=== PATIENT | male | born 2000 | race Caucasian/White ===

== ENCOUNTER 2019-11-29 10:11 | Outpatient (REF) | payer MEDICAID, SELFPAY ==
[2019-11-29 12:41] LABS: Baso%MD 0.6 %; Eos%MD 1.9 %; Hematocrit 46.8 % (42-52); Hemoglobin 14.6 g/dl (14.0-18.0); IG%MD 0.6 %; Lymph%MD 19.6 %; Mean Corpuscular HGB Conc 31.2 g/dl (31.0-36.0); Mean Corpuscular Hemoglobin 28.2 pg (27.0-33.0); Mean Corpuscular Volume 90.5 fL (80-98); Mean Platelet Volume 11.5 fL (9.4-12.4); Mono%MD 4.9 %; Neut%MD 72.4 %; Platelet Count 216 X10*3/uL (160-400); Red Blood Count 5.17 X10*6/uL (4.60-5.80); Red Cell Distribution Width 12.7 % (11.0-16.0); White Blood Count 12.2 X10*3/uL (4.8-10.8)
[2019-11-29 13:04] LABS: Alanine Aminotransferase 6 U/L (0-40); Albumin Level 4.2 g/dL (3.5-5.0); Alkaline Phosphatase 93 U/L (39-117); Anion Gap 12 (12-20); Aspartate Amino Transferase 12 U/L (5-37); Bilirubin Total 0.3 mg/dL (0.0-1.0); Blood Urea Nitrogen 10 mg/dL (9-16); C Reactive Protein 0.22 mg/dL (< or = 0.50); Calcium 8.7 mg/dL (8.4-10.2); Carbon Dioxide 28 mmol/L (22-29); Chloride 103 mmol/L (96-108); Estimated Glomerular Filt Rate > 60; Glucose Random 95 mg/dL (60-115); Potassium 4.2 mmol/l (3.3-5.1); Sodium 139 mmol/L (135-145); Total Protein 6.8 g/dL (6.5-8.0)
[2019-11-29 13:06] LABS: Rheumatoid Factor < 15.0 IU/mL (<15.0)
[2019-11-29 14:09] LABS: Erythrocyte Sedimentation Rate 2 MM/HR (0-15)
[2019-11-29 15:14] LABS: Basophils Abs Manual 0.1 X10*3/uL (0.0-0.3); Basophils Percent Manual 1 % (0-1); Eosinophils Absolute Manual 0.5 X10*3/UL (0.0-0.8); Eosinophils Percent Manual 4 % (0-4); Lymphocytes Absolute Manual 1.8 X10*3/uL (0.6-4.8); Lymphocytes Percent Manual 15 % (20-40); Monocytes Absolute Manual 0.6 X10*3/uL (0.0-1.2); Monocytes Percent Manual 5 % (2-11); Neutrophils Percent Manual 75 % (45-73)
[2019-11-29 15:15] LABS: Band Neutrophils Percent 0 % (3-5); Neutrophils Absolute Manual 9.2 X10*3/uL (2.2-7.9); Platelet Estimate NORMAL (NORMAL); Platelet Morphology Comment NORMAL; RBC Morphology NORMAL
[2019-12-01 22:02] LABS: Cyclic Citrullinated Peptide <16 UNITS
[2019-12-02 12:17] LABS: SM/Ribonucleoprotein Ab <1.0 NEG AI (<1.0 NEG); Smith Protein <1.0 NEG AI (<1.0 NEG)
[2019-12-02 14:11] LABS: Hexagonal Phase Neutralization POSITIVE (NEGATIVE); PTT (LAC) Screen 43 sec (< OR = 40); Thrombin Clotting Time 17 sec (13-19)
[2019-12-02 14:56] LABS: Complement C3 75 mg/dL (82-185)
[2019-12-03 13:16] LABS: Anti DNA DS Antibody 8 IU/mL; Antibody to SS-A Antigen <1.0 NEG AI (<1.0 NEG); Antibody to SS-B Antigen <1.0 NEG AI (<1.0 NEG)
== END 2019-11-29 10:12 | disposition home or self-care (01) ==
LOC: HO.LAB 10:11
PROVIDERS: Visit Provider Pediatrics Pediatric Rheumatology
DX: M32.19 Other organ or system involvement in systemic lupus erythematosus (principal)
CPT/HCPCS: 36415; 80053; 85007; 85027; 85597; 85613; 85652; 85730; 86038; 86039; 86140; 86160; 86200; 86225; 86235; 86431

== ENCOUNTER 2019-12-13 10:01 | Outpatient (REF) | payer MEDICAID, SELFPAY ==
--- NOTE | 2019-12-13 10:10 | XR_ITS ---
EXAMINATION: XR HAND, RIGHT CLINICAL INFORMATION: Lupus COMPARISON: Previous right wrist x-ray March 2017 TECHNIQUE: PA, lateral, and oblique views of the right hand. FINDINGS: The bones are osteopenic. There is joint space narrowing and ulnar deviation at the second through fifth MCP joints. There is joint space narrowing and slight flexion at the DIP joint of the third and fifth fingers and question of second finger. There may be slight extension at the PIP joint of the third and fifth fingers. No erosive changes are seen. The carpal bones are unremarkable. The soft tissues are unremarkable. XR/XR hand RT 2V IMPRESSION: Periarticular osteopenia. Arthritis at the IP and MCP joints.
== END 2019-12-13 10:02 | disposition home or self-care (01) ==
LOC: HO.XRAY 10:01
PROVIDERS: PCP Pediatrics; Visit Provider Pediatrics Pediatric Rheumatology
DX: M32.19 Other organ or system involvement in systemic lupus erythematosus (principal)
CPT/HCPCS: 73120

== ENCOUNTER 2020-12-07 15:33 | Outpatient (REF) | payer MEDICAID, SELFPAY ==
--- NOTE | ~2020-12-07 | MR_ITS ---
EXAMINATION: MR HAND WITHOUT AND WITH CONTRAST, RIGHT CLINICAL INFORMATION: Rheumatoid arthritis. COMPARISON: Right hand radiographs dated 12/13/2019. TECHNIQUE: Multisequence MR imaging of the right hand was performed before and after the administration of 5.5 mL Gadavist IV contrast on a high-field strength scanner. FINDINGS: BONE: There is joint space narrowing with associated flexion at the 5th distal interphalangeal joint, similar when compared to the prior radiographs. There is associated joint space narrowing with mild marrow edema and postcontrast enhancement. No large osseous erosion, however, fine bony detail is limited on MR examination. No additional abnormal marrow signal. No acute fracture or subluxation. MUSCLES/TENDONS: Fluid within the 5th flexor tendon sheath as well as to a lesser degree within the 2nd flexor tendon sheath, consistent with mild tenosynovitis. No measurable tendon defect. LIGAMENTS: The collateral ligaments are grossly intact. SOFT TISSUES: No abnormal soft tissue mass, fluid collection, or enhancement. No significant joint effusion. MR/MR hand RT wo/w con IMPRESSION: 1. Joint space narrowing and flexion redemonstrated at the 5th distal interphalangeal joint, similar when compared to the prior radiographs. Mild periarticular edema and postcontrast enhancement without definite osseous erosion. Fine bony detail somewhat limited on MR examination. 2. Moderate 5th and more mild 2nd flexor tenosynovitis. No measurable tendon defect.
--- NOTE | ~2020-12-07 | MR_ITS ---
EXAMINATION: MR HAND WITHOUT AND WITH CONTRAST, LEFT CLINICAL INFORMATION: Rheumatoid arthritis. COMPARISON: None TECHNIQUE: Multisequence MR imaging of the left hand was obtained before and after the administration of 5.5 mL Gadavist IV contrast on a high-field strength scanner. FINDINGS: BONE: There is joint space narrowing with associated flexion at the 5th distal interphalangeal joint. No significant associated marrow edema. No large osseous erosion. Evaluation of fine bony detail is limited on MRI examination. No abnormal marrow signal. No fracture or dislocation. No lytic or blastic osseous lesion. MUSCLES/TENDONS: The visualized flexor and extensor tendons are grossly intact. LIGAMENTS: The collateral ligaments are grossly intact. SOFT TISSUES: Small 1st carpometacarpal joint effusion with mild adjacent soft tissue edema and postcontrast enhancement. MR/MR hand LT wo/w con IMPRESSION: 1. Joint space narrowing and flexion at the 5th distal interphalangeal joint without a large osseous erosion or significant marrow edema. Evaluation of fine bony detail limited on MR examination. 2. Small 1st carpometacarpal joint effusion with mild adjacent soft tissue edema and postcontrast enhancement. Findings could represent inflammatory arthropathy. No associated osseous erosion.
== END 2020-12-07 15:34 | disposition home or self-care (01) ==
LOC: HO.MRI 15:33
PROVIDERS: Visit Provider Pediatrics Pediatric Rheumatology
DX: M06.9 Rheumatoid arthritis, unspecified (principal)
CPT/HCPCS: 73220; A9585

== ENCOUNTER 2021-12-14 10:26 | Outpatient (REF) | payer MEDICAID, SELFPAY ==
[2021-12-14 10:48] LABS: MANUAL DIFF FLAG NO
[2021-12-14 11:12] LABS: Basophils Absolute Auto 0.1 X10*3/uL (0.0-0.2); Basophils Percent Auto 0.7 % (0-2); Eosinophils Absolute Auto 0.2 X10*3/uL (0.0-0.4); Eosinophils Percent Auto 2.4 % (0-4); Hematocrit 43.4 % (42.0-52.0); Hemoglobin 14.6 g/dl (14.0-18.0); Imm Gran Abs Auto 0.04 X10*3/uL (0.00-0.03); Imm Gran Pct Auto 0.4 % (0.0-0.4); Lymphocytes Percent Auto 31.3 % (20-40); Mean Corpuscular HGB Conc 33.6 g/dl (31.0-36.0); Mean Corpuscular Hemoglobin 30.4 pg (27.0-33.0); Mean Corpuscular Volume 90.2 fL (80.0-98.0); Mean Platelet Volume 11.1 fL (9.4-12.4); Monocytes Absolute Auto 0.9 X10*3/uL (0.1-1.2); Neutrophils Absolute Auto 5.5 x10*3/uL (2.0-8.3); Neutrophils Percent Auto 56.2 % (45-73); Platelet Count 208 X10*3/uL (160-400); Red Blood Count 4.81 X10*6/uL (4.60-5.80); White Blood Count 9.7 X10*3/uL (4.8-10.8)
[2021-12-14 11:49] LABS: Alanine Aminotransferase 10 U/L (0-40); Aspartate Amino Transferase 16 U/L (5-37); Blood Urea Nitrogen 15 mg/dL (9-16); Cholesterol 106 mg/dL; Estimated Glomerular Filt Rate > 60; HDL Cholesterol 46 mg/dL; LDL Cholesterol Calculated 45 mg/dl; Triglycerides 79 mg/dL
[2021-12-14 11:54] LABS: Vitamin D 25-OH Total 29.3 ng/mL (>30)
[2021-12-14 12:06] LABS: Erythrocyte Sedimentation Rate 2 MM/HR (0-15)
[2021-12-14 12:17] LABS: Appearance Urine Clear; Color Urine Yellow; Glucose Urine UA Negative (Negative); Leukocyte Esterase Urine Negative (Negative); Nitrite Urine Negative (Negative); PH 6.5 (5.0-9.0); UMIC TRIGGER UA YES; Urine Blood Trace (Negative); Urine Ketones Negative (Negative); Urine Protein Trace mg/dL (Neg-Trace)
[2021-12-14 12:28] LABS: Bacteria Urine None Seen (None Seen); Hyaline Casts Urine 0-2 /LPF (0-2); Squamous Epithelial Cell Urine 0-2 /HPF (0-2); WBC Urine 0-5 /HPF (0-5)
[2021-12-15 18:57] LABS: Complement C3 76 mg/dL (82-185)
[2021-12-17 13:56] LABS: Anti DNA DS Antibody 8 IU/mL
== END 2021-12-14 10:27 | disposition home or self-care (01) ==
LOC: HO.LAB 10:26
PROVIDERS: Visit Provider Pediatrics Pediatric Rheumatology
DX: M32.19 Other organ or system involvement in systemic lupus erythematosus (principal); M06.9 Rheumatoid arthritis, unspecified
CPT/HCPCS: 36415; 80061; 81001; 82306; 82565; 84450; 84460; 84520; 85025; 85652; 86160; 86225

== ENCOUNTER 2023-07-17 06:00 | Emergency (ER) | payer MEDICAID, SELFPAY ==
[2023-07-17 06:06] VITALS: BP 104/69; PULSE 89; RESP 18; TEMP 37.1; O2SAT 97; BMI 22.3
[2023-07-17 06:31] LABS: Basophils Absolute Auto 0.1 X10*3/uL (0.0-0.2); Basophils Percent Auto 0.5 % (0-2); Eosinophils Percent Auto 0.1 % (0-4); Hematocrit 45.4 % (42.0-52.0); Hemoglobin 15.9 g/dl (14.0-18.0); Imm Gran Pct Auto 0.6 % (0.0-0.4); Lymphocytes Absolute Auto 0.3 X10*3/uL (1.2-4.9); Lymphocytes Percent Auto 1.7 % (20-40); MANUAL DIFF FLAG NO; Mean Corpuscular Hemoglobin 31.1 pg (27.0-33.0); Mean Corpuscular Volume 88.8 fL (80.0-98.0); Mean Platelet Volume 10.5 fL (9.4-12.4); Monocytes Absolute Auto 1.3 X10*3/uL (0.1-1.2); Monocytes Percent Auto 7.6 % (2-11); Neutrophils Absolute Auto 15.7 x10*3/uL (2.0-8.3); Neutrophils Percent Auto 89.5 % (45-73); Platelet Count 176 X10*3/uL (160-400); Red Blood Count 5.11 X10*6/uL (4.60-5.80); Red Cell Distribution Width 11.6 % (11.0-16.0); White Blood Count 17.5 X10*3/uL (4.8-10.8)
[2023-07-17 06:33] LABS: Appearance Urine Clear; Color Urine Yellow; Glucose Urine UA Negative (Negative); Leukocyte Esterase Urine Negative (Negative); Nitrite Urine Negative (Negative); PH >= 9.0 (5.0-9.0); UMIC TRIGGER UACC YES; Urine Blood Negative (Negative); Urine Ketones 40 mg/dL (Negative); Urine Protein 30 (1+) mg/dL (Neg-Trace)
--- OUTSIDE RECORDS SUMMARY | 2023-07-17 06:44 | XMS_ITS | Continuity of Care Document ---
Author Organization [facility] Address [address] [place] [address]- Care Team Providers Care Sterile Products Processor Name Role Phone Emily BLANC, Bang Bravo Primary Care Physician [phone] [place] [facility] [place] Date(s): 11/26/18 - 02/20/19 [facility] [address] [place] [address]- [facility] Attending Physician: Reinaldo Castro MD Allergies, Adverse Reactions, Alerts Substance Reaction Severity Status NKA Active Medications folic acid 1 mg oral tablet 1 mg, 1, tablet, By Mouth, Daily, Take 6 days per week (do not take on methotrexate day), # 90 tablet, Refills 3, Tot. Refills 3, Maintenance, 10/23/17 10:26:33 EDT, Route to Pharmacy Electronically, [id number], [facility] Start Date: 10/23/17 Status: Ordered hydroxychloroquine 200 mg oral tablet 300 mg, 1.5, tablet, By Mouth, Daily, # 45 tablet, Refills 5, Tot. Refills 5, Maintenance, 08/31/1913:26:59 EDT, Route to Pharmacy Electronically, [id number], [facility] - Start Date: 08/31/18 Status: Ordered methotrexate 2.5 mg oral tablet See Instructions, 8 tablets by mouth once each week, # 32 tablet, 2 Refills, Maintenance, 02/05/19 16:03:00 EST, [facility] - , 162.3, cm, 11/26/18 14:50:00 EDT, Height, 52.2, kg, 11/26/18 14:50:00 EDT, Dry Weight Start Date: 02/05/19 Status: Ordered omeprazole 20 mg oral delayed release tablet 1 tablet = 20 mg, By Mouth, Daily, # 30 tablet, 5 Refills, Maintenance, 08/31/18 14:27:26 EDT, EC Tablet Start Date: 08/31/18 Status: Ordered predniSONE 10 mg oral tablet 1 tablet = 10 mg, By Mouth, Daily, # 30 tablet, 3 Refills, Maintenance, 11/26/18 16:17:46 EDT Start Date: 11/26/18 Status: Ordered traMADol 50 mg oral tablet 1 tablet = 50 mg, By Mouth, Daily, PRN for pain, May take 1 tablet once or twice daily, # 30 tablet, 0 Refills, Maintenance, 01/14/19 16:52:49 EST, Tablet Start Date: 01/14/19 Status: Ordered Problem List Condition Effective Dates Status Health Status Inform ant ADHD(Confirmed) Active Systemic lupus erythematosus(Confirmed) Active Social History Social History Type Response Smoking Status Never smoker; Tobacc o user in household: No entered on: 12/01/17 Sex
--- OUTSIDE RECORDS SUMMARY | 2023-07-17 06:44 | XMS_ITS | Continuity of Care Document ---
Author Organization [facility] ter Address [address] [place] [address]- Care Team Providers Care X Ray Nurse Name Role Phone Emily BLANC, Bang Bravo Primary Care Physician [phone] Encounter [facility] [place] Date(s): 03/07/19 - 03/07/[address] [address]- [facility] Attending Physician: Reinaldo Castro MD Allergies, Adverse Reactions, Alerts Substance Reaction Severity Status NKA Active Medications folic acid 1 mg oral tablet 1 mg, 1, tablet, By Mouth, Daily, Take 6 days per week (do not take on methotrexate day), # 90 tablet, Refills 3, Tot. Refills 3, Maintenance, 10/23/17 10:26:33 EDT, Route to Pharmacy Electronically, [id number][facility] Start Date: 10/23/17 Status: Ordered hydroxychloroquine 200 mg oral tablet 300 mg, 1.5, tablet, By Mouth, Daily, # 45 tablet, Refills 5, Tot. Refills 5, Maintenance, 08/31/1913:26:59 EDT, Route to Pharmacy Electronically, [id number], [facility] - Start Date: 08/31/18 Status: Ordered methotrexate 2.5 mg oral tablet See Instructions, 8 tablets by mouth once each week, # 32 tablet, 2 Refills, Maintenance, 02/05/19 16:03:00 EST, [facility] - Ho, 162.3, cm, 11/26/18 14:50:00 EDT, Height, 52.2, [...] EST, Tablet Start Date: 01/14/19 Status: Ordered Xeljanz 5 mg oral tablet 1 tablet = 5 mg, By Mouth, 2 times a day, # 60 tablet, 11 Refills, Maintenance, 03/07/19 11:58:00 EST, Tablet, [facility], 161.3, cm, 03/07/19 10:39:00 EST, Height, 51.4, kg, 03/07/19 10:39:00 EST, Dry Weight Start Date: 03/07/19 Status: Ordered Problem List Condition Effective Dates Status Health Status Inform ant ADHD(Confirmed) Active Systemic lupus erythematosus(Confirmed) Active Social History Social History Type Response Tobacco Use: marijuana per p t.. Tobacco user in household: No. Sex
--- OUTSIDE RECORDS SUMMARY | 2023-07-17 06:44 | XMS_ITS | Continuity of Care Document ---
Author Organization [facility] Address [address] [place] [address]- Care Team Providers Care Ladle Liner Name Role Phone Emily BLANC, Bang Bravo Primary Care Physician Encounter [facility] [place] Date(s): 03/07/19 - 03/17/19 [facility] [address] [place] [address]- [facility] Attending Physician: AdmAlan anthony Admitting Physician: Admtr, Alan Referring Physician: Admtr, Ar8 Allergies, Adverse Reactions, Alerts Substance Reaction Severity Status NKA Active Medications folic acid 1 mg oral tablet 1 mg, 1, tablet, By Mouth, Daily, Take 6 days per week (do not take on methotrexate day), # 90 tablet, Refills 3, Tot. Refills 3, Maintenance, 10/23/17 10:26:33 EDT, Route to Pharmacy Electronically, [id number][facility] Start Date: 10/23/17 Status: Ordered hydroxychloroquine 200 mg oral tablet 300 mg, 1.5, tablet, By Mouth, Daily, # 45 tablet, Refills 5, Tot. Refills 5, Maintenance, 08/31/1913:26:59 EDT, Route to Pharmacy Electronically, [id number], [facility] - Start Date: 08/31/18 Status: Ordered methotrexate 2.5 mg oral tablet See Instructions, 8 tablets by mouth once each week, # 32 tablet, 2 Refills, Maintenance, 02/05/19 16:03:00 EST, [facility], 162.3, cm, 11/26/18 14:50:00 EDT, Height, 52.2, [...] 11 Refills, Maintenance, 03/07/19 11:58:00 EST, Tablet, [facility], 161.3, cm, 03/07/19 10:39:00 EST, Height, 51.4, kg, 03/07/19 10:39:00 EST, Dry Weight Start Date: 03/07/19 Status: Ordered Problem List Condition Effective Dates Status Health Status Inform ant ADHD(Confirmed) Active Systemic lupus erythematosus(Confirmed) Active Social History Social History Type Response Tobacco Use: marijuana per p t.. Tobacco user in household: No. Sex
--- OUTSIDE RECORDS SUMMARY | 2023-07-17 06:44 | XMS_ITS | Continuity of Care Document ---
Author Organization [facility] Address [address] [place] [address]- Care Team Providers Care Cattle Care Worker Name Role Phone Bang Diaz MD Primary Care Physician [phone] [place] [facility] [place]14/19 [facility] [address] [place] [address]- [facility] Attending Physician: Reinaldo Castro MD Referring Physician: Bang Diaz MD Allergies, Adverse Reactions, Alerts Substance Reaction Severity Status NKA Active Medications folic acid 1 mg oral tablet 1 mg, 1, tablet, By Mouth, Daily, Take 6 days per week (do not take on methotrexate day), # 90 tablet, Refills 3, Tot. Refills 3, Maintenance, 10/23/17 10:26:33 EDT, Route to Pharmacy Electronically, [id number][facility] Start Date: 10/23/17 Status: Ordered hydroxychloroquine 200 mg oral tablet 300 mg, 1.5, tablet, By Mouth, Daily, # 45 tablet, Refills 5, Tot. Refills 5, Maintenance, 08/31/1913:26:59 EDT, Route to Pharmacy Electronically, [id number], [facility] - Start Date: 08/31/18 Status: Ordered methotrexate 2.5 mg oral tablet See Instructions, 8 tablets by mouth once each week, # 32 tablet, 2 Refills, Maintenance, 02/05/19 16:03:00 EST, [facility] - , 162.3, cm, 11/26/18 [...] 11 Refills, Maintenance, 03/07/19 11:58:00 EST, Tablet, [facility], 161.3, cm, 03/07/19 10:39:00 EST, Height, 51.4, kg, 03/07/19 10:39:00 EST, Dry Weight Start Date: 03/07/19 Status: Ordered Problem List Condition Effective Dates Status Health Status Inform ant ADHD(Confirmed) Active Systemic lupus erythematosus(Confirmed) Active Vital Signs Most recent to oldest [Reference Range]: 1 Height 161.3 cm (03/07/19 10:39 AM) Weight 51.4 kg (03/07/19 10:39 AM) Pulse Rate [55-90 bpm] 79 bpm (03/07/19 10:39 AM) Body Mass Index [18.5-24.99] 19.76 (03/07/19 10:39 AM) Blood Pressure [90-138/55-84 mm Hg] 113/ 68mm Hg (03/07/19 10:39 AM) Respiratory Rate [16-30 br/min] 20 br/mi n (03/07/19 10:39 AM) Temperature [96.8-100.4 DegF] 98.2 DegF (03/07/19 10:39 AM) Blood pressure sites Arm, right (03/07/19 10:39 AM) Temperature Route Oral (03/07/19 10:39 AM) Dry Weight 51.4 kg (03/07/19 10:39 AM) Weight Obtained Via Standing scale (03/07/19 10:39 AM) Dry Weight Obtained Via Standing scale (03/07/19 10:39 AM) Social History Social History Type Response Tobacco Use: marijuana per p t.. Tobacco user in household: No. Sex
--- OUTSIDE RECORDS SUMMARY | 2023-07-17 06:44 | XMS_ITS | Continuity of Care Document ---
Author Organization [facility] ter Address [address] [place] [address]- Care Team Providers Care Corporate Attorney Name Role Phone Emily BLANC, Bang Bravo Primary Care Physician [place] [facility] [place] 02/[place]/[address] [address] [facility] Attending Physician: Reinaldo Castro MD Admitting Physician: Reinaldo Castro MD Referring Physician: Reinaldo Castro MD Allergies, Adverse Reactions, Alerts Substance Reaction Severity Status NKA Active Medications folic acid 1 mg oral tablet 1 mg, 1, tablet, By Mouth, Daily, Take 6 days per week (do not take on methotrexate day), # 90 tablet, Refills 3, Tot. Refills 3, Maintenance, 10/23/17 10:26:33 EDT, Route to Pharmacy Electronically, [id number], [facility] Start Date: 10/23/17 Status: Ordered hydroxychloroquine 200 mg oral tablet 300 mg, 1.5, tablet, By Mouth, Daily, # 45 tablet, Refills 5, Tot. Refills 5, Maintenance, 08/31/1913:26:59 EDT, Route to Pharmacy Electronically, [id number], [facility] - Start Date: 08/31/18 Status: Ordered methotrexate 2.5 mg oral tablet See Instructions, 8 tablets by mouth once each week, # 32 tablet, 2 Refills, Maintenance, 02/05/19 16:03:00 EST, [facility] - , 162.3, cm, 11/26/18 [...]
--- OUTSIDE RECORDS SUMMARY | 2023-07-17 06:44 | XMS_ITS | Continuity of Care Document ---
Author Organization [facility] Address [address] [place] [address]- Care Team Providers Care Laser/Electro Optics Technician Name Role Phone Emily BLANC, Bang Bravo Primary Care Physician Encounter [facility] [place] Date(s): 01/21/19 - 01/31/19 [facility] [address] [place] [address]- [facility] Attending Physician: Alan Cross Admitting Physician: AdmtrAlan Referring Physician: Admtr, Ar8 Allergies, Adverse Reactions, Alerts Substance Reaction Severity Status NKA Active Medications folic acid 1 mg oral tablet 1 mg, 1, tablet, By Mouth, Daily, Take 6 days per week (do not take on methotrexate day), # 90 tablet, Refills 3, Tot. Refills 3, Maintenance, 10/23/17 10:26:33 EDT, Route to Pharmacy Electronically, [id number], [facility]... Start Date: 10/23/17 Status: Ordered hydroxychloroquine 200 mg oral tablet 300 mg, 1.5, tablet, By Mouth, Daily, # 45 tablet, Refills 5, Tot. Refills 5, Maintenance, 08/31/1913:26:59 EDT, Route to Pharmacy Electronically, [id number], [facility] - Start Date: 08/31/18 Status: Ordered methotrexate 2.5 mg oral tablet See Instructions, 8 tablets by mouth once each week, # 32 tablet, 5 Refills, Maintenance, 08/31/18 14:27:25 EDT Start Date: 08/31/18 Status: Ordered omeprazole 20 mg oral delayed [...]
[2023-07-17 06:45] LABS: Alanine Aminotransferase 14 U/L (0-40); Albumin Level 4.6 g/dL (3.5-5.0); Alkaline Phosphatase 88 U/L (39-117); Anion Gap 13 (12-20); Aspartate Amino Transferase 17 U/L (5-37); Bilirubin Total 0.6 mg/dL (0.0-1.0); Blood Urea Nitrogen 12 mg/dL (9-16); Calcium 9.4 mg/dL (8.4-10.2); Carbon Dioxide 23 mmol/L (22-29); Chloride 105 mmol/L (96-108); Creatinine Clr Calc Pharmacy 112.7; Estimated Glomerular Filt Rate > 60; Glucose Random 114 mg/dL (60-115); Lipase 6 U/L (8-78); Potassium 3.7 mmol/L (3.3-5.1); Sodium 137 mmol/L (135-145); Total Protein 7.5 g/dL (6.5-8.0)
[2023-07-17 06:47] LABS: Bacteria Urine None Seen (None Seen); Hyaline Casts Urine 0-2 /LPF (0-2); RBC Urine 0-2 /HPF (0-2); Squamous Epithelial Cell Urine 0-2 /HPF (0-2); WBC Urine 0-5 /HPF (0-5)
[2023-07-17 07:08] LABS: Influenza A PCR NEGATIVE (Negative); Influenza B PCR NEGATIVE (Negative); Resp Syncy Virus RNA Qual PCR NEGATIVE (Negative); SARS COV2 PCR INHOUSE POSITIVE (Negative)
--- NOTE | 2023-07-17 07:35 | ED_ITS ---
HPI - General Adult General Chief complaint: Abdominal Pain Stated complaint: vomiting Time Seen by Provider: 07/17/23 07:27 Source: patient and family Mode of arrival: ambulatory Limitations: no limitations History of Present Illness ED Provider: DR. Vargas HPI narrative: 22-year-old male history of lupus came in for evaluation of abdominal pain, nausea, vomiting, and diarrhea since last night. Patient smokes marijuana everyday started yesterday with vomiting and unable to keep any oral intake down because of the vomiting, had 1 time nonbloody watery brown color diarrhea, pain is mostly in the epigastric area and patient think it is related to frequent vomiting, no coughing, no chills, started to feel generalized body ache this morning, no sick contacts, no recent travel, no coughing. No intra-abdominal history of surgery. Last bowel movement was 03:00 and was nonbloody watery diarrhea, passing flatus, no dysuria, no frequency urination. Related Data Allergies Allergy/AdvReac Type Severity Reaction Status Date / Time No Known Allergies Allergy Verified 07/17/23 06:08 Review of Systems 2 Review of Systems: All other systems are reviewed and are negative Constitutional: Reports as per HPI and Reports no additional constitutional complaints Eyes: Reports as per HPI and Reports no additional eye complaints Reports system reviewed and no additional complaints, except as documented Cardiovascular: Reports as per HPI and Reports no additional cardiovascular complaints Respiratory: Reports as per HPI and Reports no additional respiratory complaints Gastrointestinal: Reports as per HPI and Reports no additional gastrointestinal complaints Genitourinary: Reports no additional female genitourinary complaints Musculoskeletal: Reports no additional musculoskeletal complaints Skin/Breast: Reports system reviewed and no additional complaints, except as docu Psychiatric: Reports no additional psychiatric complaints Endocrine: Reports no additional endocrine complaints Hematologic/Lymphatic: Reports no additional hematologic/lymphatic complaints Allergic/Immunologic: Reports no additional allergic/immunologic complaints Reports system reviewed and no additional complaints, except as documented and Reports Abnormal speech present COUNT INCLUDES THE [facility] Social History Social History Smoked in Last 30 Days: No Substance Use Type: Marijuana Substance Use Frequency: Daily Advance Directives: No Advance Directives Information Provided: No Physical Exam ED Vital Signs: Vital Signs - 24 hr 07/17/23 06:06 07/17/23 07:54 Temperature 98.7 F 99.7 F Pulse Rate 89 85 Respiratory Rate 18 14 Blood Pressure 104/69 112/62 Pulse Oximetry 97 94 Oxygen Delivery Method Room Air Room Air BMI result Body Mass Index 22.3 Vital signs have been reviewed and appear to be correct. Blood pressure elevated. Heart rate normal. Respiratory rate normal. Temperature normal. Oxygen saturation normal. Appearance: Alert. Oriented X3. No acute distress. Head: Normal external exam. Normocephalic. Atraumatic. No Nunn signs noted. No raccoon eyes noted Eyes: PERRLA. EOMI. Conjunctiva and sclera normal. Eyelids normal. ENT: TM's Normal. Pharynx normal. Uvula midline. Moist mucous membranes. No trismus noted. No drooling noted. No muffled voice noted. Neck: Normal inspection. Neck supple. FROM. No adenopathy. Thyroid Normal. No meningeal signs. No neck mass noted. CVS: Normal heart rate and rhythm. Heart sound normal. No murmurs noted. Pulses normal throughout. Respiratory: No respiratory distress. Painless inspiration. Breath sounds normal. No wheezes/rales/rhonchi noted. Chest nontender. No accessory muscle usage noted or decreased air movement noted. Abdomen: Soft and nontender. Bowel sounds normal in all 4 quadrants. No distention noted. No organomegaly noted. No visible injury noted. Back: No CVA tenderness. Full range of motion noted. Skin: Skin warm and dry. Normal skin color. Normal skin turgor. No rashes/lesions/lacerations noted. Extremities: No lower extremity edema. Extremities exhibit normal range of motion. Extremities nontender. Neuro: Oriented X 3. Cranial nerve exam: II-XII are grossly intact No motor deficit. No sensory deficit. Reflexes normal. Course Reevaluation(s) Reevaluation #1: 22-year-old male came in with nausea and vomiting with diarrhea patient tested positive for COVID-19 infection, patient received IV fluids, Zofran, Pepcid, Maalox now feels better and able to tolerate p.o. intake without nausea vomiting, repeat abdominal exam shows no abdominal tenderness. Time: 10:56 Medications Administered Discontinued Medications Generic Name Dose Route Start Last Admin Trade Name Freq PRN Reason Stop Dose Admin Al Hydroxide/Mg Hydroxide 30 ml 07/17/23 07:34 07/17/23 08:29 Magnesium Hydrox/Alum Hydrox 30 Ml Oral.Susp PO 07/17/23 07:35 30 ml ONCE ONE Administration Famotidine 20 mg 07/17/23 07:34 07/17/23 08:29 Famotidine/Pf 20 Mg/2 Ml Vial IVPUSH 07/17/23 07:35 20 mg ONCE ONE Administration Sodium Chloride 1,000 mls @ 999 mls/hr 07/17/23 07:34 07/17/23 08:29 Ns IV 07/17/23 08:34 999 mls/hr .Q1H1M ONE Administration Ondansetron HCl 4 mg 07/17/23 07:34 07/17/23 08:29 Ondansetron Hcl 4 Mg/2 Ml Vial IVPUSH 07/17/23 07:35 4 mg ONCE ONE Administration Medical Decision Making Differential Diagnosis Differential Diagnoses: The differential diagnosis associated with the presentation includes (Gastroenteritis, gastritis, viral infection, acute appendicitis, pancreatitis, cholecystitis, electrolyte derangement, severe anemia.) Admission/Observation Consideration of admission/observation: Escalation of care including admission/observation considered Lab Data MDM Lab Attestation statement: I reviewed the patient's lab results. 07/17/23 06:25 07/17/23 06:25 Labs: Lab Results 07/17/23 Range/Units 06:25 WBC 17.5 H (4.8-10.8) X10*3/uL RBC 5.11 (4.60-5.80) X10*6/uL Hgb 15.9 (14.0-18.0) g/dl Hct 45.4 (42.0-52.0) % MCV 88.8 (80.0-98.0) fL MCH 31.1 (27.0-33.0) pg MCHC 35.0 (31.0-36.0) g/dl RDW 11.6 (11.0-16.0) % Plt Count 176 (160-400) X10*3/uL MPV 10.5 (9.4-12.4) fL Immature Gran % (Auto) 0.6 H (0.0-0.4) % Neut % (Auto) 89.5 H (45-73) % Lymph % (Auto) 1.7 L (20-40) % Ransom % (Auto) 7.6 (2-11) % Eos % (Auto) 0.1 (0-4) % Baso % (Auto) 0.5 (0-2) % Lymph # (Auto) 0.3 L (1.2-4.9) X10*3/uL Ransom # (Auto) 1.3 H (0.1-1.2) X10*3/uL Eos # (Auto) 0.0 (0.0-0.4) X10*3/uL Baso # (Auto) 0.1 (0.0-0.2) X10*3/uL Abs Immat Gran (auto) 0.10 H (0.00-0.03) X10*3/uL Absolute Neuts (auto) 15.7 H (2.0-8.3) x10*3/uL Absolute Nucleated RBC 0.000 (0.0-0.012) X10*3/uL Nucleated RBC % (auto) 0.0 (0.0-0.2) /100WBC Sodium 137 (135-145) mmol/L Potassium 3.7 (3.3-5.1) mmol/L Chloride 105 (96-108) mmol/L Carbon Dioxide 23 (22-29) mmol/L Anion Gap 13 (12-20) BUN 12 (9-16) mg/dL Creatinine 0.82 (0.5-1.4) mg/dL Estim Creat Clear Calc 112.7 Estimated GFR > 60 Random Glucose 114 (60-115) mg/dL Calcium 9.4 D (8.4-10.2) mg/dL Total Bilirubin 0.6 (0.0-1.0) mg/dL AST 17 (5-37) U/L ALT 14 (0-40) U/L Alkaline Phosphatase 88 (39-117) U/L Total Protein 7.5 (6.5-8.0) g/dL Albumin 4.6 (3.5-5.0) g/dL Lipase 6 L (8-78) U/L Urine Color Yellow Urine Appearance Clear Urine pH >= 9.0 (5.0-9.0) Ur Specific Kenton 1.020 (1.005-1.025) Urine Protein 30 (1+) H (Neg-Trace) mg/dL Urine Glucose (UA) Negative (Negative) mg/dL Urine Ketones 40 (Negative) mg/dL Urine Blood Negative (Negative) Urine Nitrite Negative (Negative) Ur Leukocyte Esterase Negative (Negative) Urine RBC 0-2 (0-2) /HPF Urine WBC 0-5 (0-5) /HPF Ur Squamous Epith Cells 0-2 (0-2) /HPF Urine Bacteria None Seen (None Seen) Hyaline Casts 0-2 (0-2) /LPF Influenza Type A (PCR) NEGATIVE (Negative) Influenza Type B (PCR) NEGATIVE (Negative) RSV RNA Qual (PCR) NEGATIVE (Negative) SARS-CoV-2 RNA (RT-PCR) POSITIVE A (Negative) Discharge Plan Discharge Clinical Impression: COVID-19 virus infection, Gastroenteritis due to 2019-nCoV Patient Disposition: Home, Self-Care Instructions: COVID-19 (Coronavirus Disease 2019) (ED) Referrals: Bang Diaz MD [Primary Care Provider] - Print Language: Swedish
[2023-07-17 07:54] VITALS: BP 112/62; PULSE 85; RESP 14; TEMP 37.6; O2SAT 94
[2023-07-17] MEDS: 0.9 % Sodium Chloride 1,000 ML 999 ML IV (08:29)
[2023-07-17] MEDS: Famotidine/PF 20 MG/2 ML VIAL IVPUSH (08:29)
[2023-07-17] MEDS: ondansetron HCL 4 MG/2 ML VIAL IVPUSH (08:29)
[2023-07-17] MEDS: Magnesium Hydrox/Alum Hydrox 30 ML ORAL.SUSP PO (08:29)
[2023-07-17 11:06] VITALS: BP 112/62; PULSE 85; RESP 14; TEMP 37.6; O2SAT 94
== END 2023-07-17 11:07 | disposition home or self-care (01) ==
PROVIDERS: Emergency Provider Emergency Medicine; PCP Pediatrics
DX: U07.1 COVID-19 (principal); K52.9 Noninfective gastroenteritis and colitis, unspecified
CPT/HCPCS: 0241U; 80053; 81001; 83690; 85025; 96361; 96374; 96375; 99284; 99285; J2405

== ENCOUNTER 2024-06-07 12:34 | Outpatient (REF) | payer MEDICAID, SELFPAY ==
[2024-06-07 12:45] LABS: MANUAL DIFF FLAG NO
--- OUTSIDE RECORDS SUMMARY | 2024-06-07 13:00 | XMS_ITS | Clinical Summary ---
Author Organization [facility] Address [address] [place] [address] Care Team Providers Care Hotbed Lever Operator Name Role Phone Bang Diaz MD Primary Care Provider [phone] Source Comments Please note that some or all of the patient's information could have additional privacy protections. State laws allow health care providers to render certain types of treatment to minors without parental consent. Please do not assume that this information can be shared solely by obtaining just the consent of the patient's parent/guardian. Please determine if all or part of the patient's care was rendered without parent/guardian involvement. And, if so, obtain the minor's consent prior to disclosure.[facility] Allergies No known active allergies Medications sodium fluoride-pot nitrate 1.1-5 % Paste BRUSH TEETH POR 2 MINUTES TWICE DAILY IN THE MORNING AND IN THE EVENING. SPIT OUT, NO RINSE. NO EAT OR DRINK NADA POR 30 MINUTES AFTER 04/13/19 23 Active meloxicam (MOBIC) 7.5 MG tabletIndications :Systemic lupus erythematosus with other organ involvement, unspecified SLE type TAKE 1 TABLET BY MOUTH EVERY DAY 30 tablet 5 01/12/20 24 Active hydroxychloroquin e sulfate (PLAQUENIL) 200 mg tabletIndications :Systemic lupus erythematosus with other organ involvement, unspecified SLE type,Rheumatoid arthritis, unspecified,Other organ or system involvement in systemic lupus erythematosus TAKE 1 TABLET BY MOUTH EVERY DAY MONDAY THROUGH MONDAY, AND TAKE 2 TABLETS EVERY DAY ON MONDAY AND MONDAY 45 tablet 4 03/08/19 25 Active XELJANZ XR 11 mg Tablet Extended Release 24 hrIndications:Rhe umatoid arthritis with negative rheumatoid factor, involving unspecified site TAKE 1 TABLET BY MOUTH EVERY DAY 30 tablet 3 05/14/19 25 Active tofacitinib (XELJANZ XR) 11 mg Tablet Extended Release 24 hrIndications:Rhe umatoid arthritis with negative rheumatoid factor, involving unspecified site Take 11 mg by mouth daily 30 tablet 3 01/02/20 24 025 Discontinued Active Problems No known active problems Encounters Date Type Department Care Team Description 06/06/2024 2:00 PM EDT Office Visit [facility], Department of Rheumatology, [address] [place] [address] Romana Domingo MD 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 factor, involving unspecified site (Primary Dx); Systemic lupus erythematosus with other organ involvement, unspecified SLE type 05/11/2024 Refill [facility], Department of Rheumatology[address] [phone] Romana Domingo MD 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 factor, involving unspecified site (Primary Dx) from Last 3 Months Family History Medical History Relation Name Comments Lupus Cousin Arthritis Mother Psoriasis Neg Hx Thyroid disease Neg Hx Relation Name Status Comments Cousin Mother Social History Tobacco Use Types Packs/Day Years Used Date Smoking Tobacco: Never Passive Smoke Exposure: Current Smokeless Tobacco: Never Comments:SMOKES MARIJUANA Alcohol Use Standard Drinks/Week Comments Never 0 (1 standard drink = 0.6 oz pur e alcohol) Sex and Gender Information Value Date Recorded Sex Assigned at Not on file Legal Sex Male 2:47 PM EDT Gender Identity Not on file Sexual Orientation Not on file Last Filed Vital Signs Vital Sign Reading Time Taken Comments Blood Pressure 128/76 06/06/2024 2:05 PM EDT Pulse 79 06/06/2024 2:05 PM EDT Temperature 36 ??C (96.8 ??F) 11/19/2019 8:47 AM EDT Respiratory Rate - - Oxygen Saturation 98% 11/19/2019 8:47 AM EDT Inhaled Oxygen Concentration - - Weight 63.2 kg (139 lb 5.3 oz) 06/06/2024 2:05 P M EDT Height 162 cm (5' 3.78 ) 06/06/2024 2:05 PM EDT Body Mass Index 24.08 06/06/2024 2:05 PM EDT Plan of Treatment Upcoming Encounters Date Type Department Care Team (Late st Contact Info) Description 12/12/2024 2:40 PM EST Office Visit [facility], Department of Rheumatology, [address] [place] [address] Romana Domingo MD [address] [place] [phone] Health Maintenance Due Date Last Done Comments DTaP/TDAP/TD VACCINES (1 - Tdap) 12/14/2006 ADOLESCENT HIV SCREENING 12/14/2012 COVID-19 Vaccine (2023-2 5 season) 2023 INFLUENZA (#1) 2023 NIRSEVIMAB VACCINES UNDER 8 MONTHS Aged Out No longer eligible based on patient's age to complete this topic Insurance [facility] MEDICAID Care Teams Hotbed Lever Operator Relationship Specialty Start Date End Date Bang Diaz MD [address] [phone] PCP - General General Pediatrics 08/19/19
--- OUTSIDE RECORDS SUMMARY | 2024-06-07 13:00 | XMS_ITS | Encounter Summary ---
Author Organization [facility] Address [address] [place] [address] Care Team Providers Care Airplane Patroller Name Role Phone Bang Diaz MD Primary Care Provider [phone] Reason for Referral * Consultation (Routine) - New Request Specialty Diagnoses / Procedures Referred By Jourdan alexandra Referred To Contact Rheumatology Diagnoses 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 factor, involving unspecified site Systemic lupus erythematosus with other organ involvement, unspecified SLE type Romana Domingo MD [address] [place] [address] Phone: tel: fax: Referral ID Status Reason Start Date Expiration Date Visits Requested Visits Authorized [id number] New Request Specialty Services Required 06/06/2024 12/03/2024 1 1 Reason for Visit * Reason Comments Follow-up * [facility] AUTH/CERT (Routine) - Authorized Specialty Diagnoses / Procedures Referred By Jourdan alexandra Referred To Contact Rheumatology Diagnoses Rheumatoid arthritis involving multiple sites, unspecified whether rheumatoid factor present 6 m f/u Procedures FOLLOW UP Bang Diaz MD [address] [place] [phone] Phone: tel: fax: Romana Domingo MD [address] [place] [address] Phone: tel: fax: Referral ID Status Reason Start Date Expiration Date V isits Requested Visits Authorized [id number] Authorized 07/20/2023 07/19/2024 1 6 Encounter Details Date Type Department Care Team (Late st Contact Info) Description 06/06/2024 2:00 PM EDT Office Visit [facility], Department of Rheumatology, [address] [address] Romana Domingo MD [address] [place] [phone] 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 factor, involving unspecified site (Primary Dx); Systemic lupus erythematosus with other organ involvement, unspecified SLE type Social History Tobacco Use Types Packs/Day Years [...] on file Sexual Orientation Not on file documented as of this encounter Last Filed Vital Signs Vital Sign Reading Time Taken Comments Blood Pressure 128/76 06/06/2024 2:05 PM EDT Pulse 79 06/06/2024 2:05 PM EDT Temperature - - Respiratory Rate - - Oxygen Saturation - - Inhaled Oxygen Concentration - - Weight 63.2 kg (139 lb 5.3 oz) 06/06/2024 2:05 P M EDT Height 162 cm (5' 3.78 ) 06/06/2024 2:05 PM EDT Body Mass Index 24.08 06/06/2024 2:05 PM EDT documented in this encounter Patient Instructions * Patient Instructions* Romana Domingo MD - 06/06/2024 2:00 PM EDT 1-Overall you are doing well on current medications. 2-Reviewed why it is so important to do the labs for monitoring. We don't have any lab results [id number]. 3-Labs are active in system - suggest you do them today. 4-Return in 6 months but please work on appt with adult rheum prior to that appt. documented in this encounter Plan of Treatment Upcoming Encounters Date Type Department Care Team (Late st Contact Info) Description 12/12/2024 2:40 PM EST Office Visit [facility], Department of Rheumatology, [address] [phone] Romana Domingo MD [address] [place] [phone] Scheduled Referrals Name Type Priority Associated Diagnoses Orde r Schedule Ambulatory referral to Rheumatology Outpatient Referral Routine 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 factor, involving unspecified site Systemic lupus erythematosus with other organ involvement, unspecified SLE type Ordered: 06/06/2024 documented as of this encounter Visit Diagnoses Diagnosis 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 factor, involving unspecified site- Primary Systemic lupus erythematosus with other organ involvement, unspecified SLE type documented in this encounter Care Teams Airplane Patroller Relationship Specialty Start Date End Date Bang Diaz MD [address] [place] [phone] PCP - General General Pediatrics 08/19/19 documented as of this encounter
--- OUTSIDE RECORDS SUMMARY | 2024-06-07 13:00 | XMS_ITS | Clinical Summary ---
Author Organization [employer] Address [address] [facility] [address] [place] [address] Care Team Providers Care Online User Experience Strategist Name Role Phone Crystal Paz Primary Care Provider Allergies No known active allergies Medications Sod Fluoride-Potass ium Nitrate 1.1-5 % pasteIndication s:Dental caries [place] teeth for 2 minutes, morning and night. Spit, do not rinse. Do not eat or drink anything for 30 minutes following brushing. 96 g 3 3 Active hydroxychloroqu ine (Plaquenil) 200 MG tablet TAKE 1 TABLET BY MOUTH DAILY MONDAY THROUGH MONDAY AND TAKE 2 TABLETS DAILY ON MONDAY AND Monday 3 Active meloxicam (Mobic) 7.5 MG tablet Take 7.5 mg by mouth in the morning. 3 Active Xeljanz 5 MG tablet Take 5 mg by mouth 2 times daily. 3 Active Active Problems Problem Noted Date Diagnosed Date Marijuana use 05/25/2023 Assessment & Plan (05/25/2023 5:30 PM EDT): Marijuana using twice a day -advise to try to cut down in consumption -denies feeling anxious nor depressed but has poor interaction,denies any SI -refuse BH evaluation Health care maintenance 05/25/2023 Assessment & Plan (05/25/2023 5:30 PM EDT): -vaccines Hep A x2,hep Bx3, HPVx3, meningococcal vaccine x2, MMRx2, varicellax2, tdap 2011 -refuse offer tdap vaccine booster today ,COVID 19 -never-refuse today, Flu vaccine refuse -labs x annual exam-pt agreed to have STI testing including HIV to have for baseline--will call pt w lab results Attention deficit hyperactivity disorder (ADHD) 07/02/2022 Assessment & Plan (05/25/2023 5:30 PM EDT): States to be stable -not on meds Dental calculus 06/13/2022 Seronegative rheumatoid arthritis 05/19/2021 [place]-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 [address] [place] [address] Crystal Paz ANP July recall 04/19/2024 Population Health Risk Score [facility] () Department [address] [phone] Provider, Population Health Generic from Last 3 Months Immunizations Name Administration Dates Next Due DTaP 09/21/2005, 2,09/06/2000,04/12/2000,0 02/14/2000 HPV 9-Valent 09/22/2016,12/17/2015,10/07/2015 Hep A, ped/adol, 2 dose 09/22/2016,10/07/2015 Hep B, Adolescent or Pediatric 01/27/2010,2000,1999 Hib (HbOC) 09/06/2001,05/16/2001,04/12/2000 ,02/14/2000 IPV 09/21/2005,01/26/2001,04/12/2000 ,02/14/2000 Influenza, live, intranasal 01/11/2013 MMR 09/21/2005,01/26/2001 Meningococcal MCV4P ACYW-135 09/22/2016,10/17/19 12 Pneumococcal Conjugate PCV 7 05/16/2001,09/07/19 01,04/12/2000,02/14/2000 Rabies, intramuscular 01/22/2017,01/07/2017 Tdap 10/17/2011 Varicella 08/15/2007,01/26/2001 Family History Medical History Relation Name Comments unspecied malignancy Mother's Brother cousin : LES Other Relation Name Status Comments Mother's Brother Other Social History Tobacco Use Types Packs/Day Years Used Date Smoking Tobacco: Never Smokeless Tobacco: Never Tobacco Cessation:Counseling Given: Not Answered Alcohol Use Standard Drinks/Week Comments Never 0 (1 standard drink = 0.6 oz pur e alcohol) Depression Answer Date Recorded Patient Health Questionnaire-9 Score 0 05/24/2023 Patient Health Questionnaire-9 Score 0 05/24/2023 Last PHQ-9: Questionnaire Data Not on file 0 05/24/2023 Housing Stability Answer Date Recorded What is your housing situation today? I have madelyn aragon 05/24/[address] you li ve. Do you have problems with any of the following? None of the above 05/24/2023 Food Insecurity Answer Date Recorded Within the past 12 months, y ou worried that your food would run out before you got money to buy more: Never True 03/09/2023 Within the past 12 months,th e food you bought just didn't last and you didn't have enough money to get more: Never True 02/2023 Transportation Answer Date Recorded In the past 12 months, has l ack of transportation kept you from medical appts, meetings, work or from getting things needed for daily living? No 03/09/2023 Utilities Answer Date Recorded In the past 12 months, has t he electric, gas, oil or water company threatened to shut off services in your home? I am not sure 05/24/2023 Depression Answer Date Recorded Patient Health Questionnaire-2 Score 0 05/24/2023 Sex and Gender Information Value Date Recorded Sex Assigned at Male 12/06/2021 10:16 AM EDT Legal Sex Male 10:16 AM EDT Gender Identity Male 12/06/2021 10:16 AM EDT Sexual Orientation Straight 12/06/2021 10 :16 AM EDT Last Filed Vital Signs Vital Sign Reading Time Taken Comments Blood Pressure 116/72 05/24/2023 2:52 PM EDT Pulse 76 05/24/2023 2:52 PM EDT Temperature 36.2 ??C (97.2 ??F) 05/24/2023 2:52 PM ED T Respiratory Rate 20 05/24/2023 2:52 PM EDT Oxygen Saturation 97% 05/24/2023 2:52 PM EDT Inhaled Oxygen Concentration - - Weight 56.2 kg (123 lb 12.8 oz) 05/24/2023 2:52 PM EDT Height 161.3 cm (5' 3.5 ) 05/24/2023 2:52 PM EDT Body Mass Index 21.59 05/24/2023 2:52 PM EDT Plan of Treatment Health Maintenance Due Date Last Done Comments HIV Screening 1999 Alcohol/Substance Use Screening 2011 Family Planning (PISQ) 12/14/2014 Hepatitis C Screening 12/14/2017 DTaP/Tdap/Td Vaccines (7 - Td or Tdap) 10/16/2021 10/17/2011, 09/21/2005, 05/16/2001, Additional history exists Dental Oral Exam 10/14/2022 04/12/2022 Dental Prophylaxis 2022 06/13/2022 Dental X-Ray: Bitewings 04/14/2023 04/12/2022 Tobacco Screening 06/14/2023 06/13/2022 COVID-19 Vaccine ( season) 2023 Influenza Vaccine (#1) 2023 01/11/2013 Depression Screening 05/23/2024 05/24/2023, 05/24/19 24 SDOH Screening 05/23/2024 05/24/2023 Dental X-Ray: Full Mouth 04/13/2025 04/12/2022 Zoster Vaccines (1 of 2) 12/14/2049 RSV Patients and Patients Aged 60 years or older (1 - 1-dose 75+ series) 12/14/2074 Pneumococcal Vaccine: Pediatrics (0 to 5 Years) and At-Risk Patients (6 to 49) Years) Aged Out 05/16/2001, 09/06/2000, 04/12/2000, Additional history exists No longer eligible based on patient's age to complete this topic HIB Vaccines Completed 09/06/2001, 05/07, 04/12/2000, Additional history exists IPV Vaccines Completed 09/21/2005, 01/07, 04/12/2000, Additional history exists Hepatitis B Vaccines Completed 01/27/2010, 09/06/2000, 1999 HPV Vaccines Completed 09/22/2016, 12/07, 10/07/2015 Hepatitis A Vaccines Completed 09/22/2016, 10/07/19 16 Meningococcal Vaccine Completed 09/22/2016, 012 RSV under 20 months Aged Out No longe r eligible based on patient's age to complete this topic Rotavirus Vaccines Aged Out No longer eligible based on patient's age to complete this topic Procedures Procedure Name Priority Date/Time Associated Diagnosis Comments PROPHYLAXIS - ADULT Routine 06/13/2022 1 :00 PM EDT INTRAORAL - COMPLETE SERIES OF RADIOGRAPHIC IMAGES Routine 04/12/2022 3:00 PM EST Dental caries COMPREHENSIVE ORAL EVALUATION - NEW OR ESTABLISHED PATIENT Routine 04/12/2022 3:00 PM EST Dental caries from Last 3 Months or Most Recently Relevant to Health Maintenance Insurance [facility]AL-[facility] MEDICAID STAND ADULT [facility] C3 DENTAL-[place] MEDICAID STAND ADULT Care Teams Online User Experience Strategist Relationship Specialty Start Date End Date Crystal Paz ANP [address] [place] [id number] PCP - General Family Medicine 12/12/19
--- OUTSIDE RECORDS SUMMARY | 2024-06-07 13:00 | XMS_ITS ---
Author Name [facility] Organization Unknown History of Medication Use Medication Directions Dispensed Refills Start Date End Date Stat XELJANZ XR 11 mg Tablet Extended Release 24 hr TAKE 1 TABLET BY MOUTH EVERY DAY 05/13/2024 active meloxicam (MOBIC) 7.5 MG tablet TAKE 1 TABLET BY MOUTH EVERY DAY 04/25/2022 3 active meloxicam (MOBIC) 7.5 MG tablet TAKE 1 TABLET BY MOUTH EVERY DAY 04/25/2022 active predniSONE (DELTASONE) 2.5 MG tablet TAKE 2 TABLETS BY MOUTH DAILY 11/11/2021 3 aborted XELJANZ 5 mg Tablet tablet TAKE 1 TABLET BY MOUTH TWICE DAILY 11/23/2020 2 active predniSONE (DELTASONE) 2.5 MG tablet Take 3 tablets (7.5 mg) by mouth daily 08/27/2020 2 aborted meloxicam (MOBIC) 7.5 MG tablet TAKE 1 TABLET BY MOUTH EVERY DAY 06/15/2020 3 active tofacitinib (XELJANZ) 5 mg Tablet tablet Take 5 mg by mouth 2 (two) times daily 1 aborted hydroxychloroquine sulfate (PLAQUENIL) 200 mg tablet Take 200 mg by mouth daily 200 mg PO every day M-F, 400 mg PO Sat/Sun active Problems Problem Status Onset Date Problem Type Date of Resolution Source Systemic lupus erythematosus with other organ involvement, unspecified SLE type active EncounterDiagnosisAct [facility] 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 factor, involving unspecified site active EncounterDiagnosisAct [facility] Rheumatoid arthritis involving both hands, unspecified whether rheumatoid factor present active EncounterDiagnosisAct [facility] Encounters Encounter Type Encounter Reason Primary Diagnosis Location Date Ambulatory Rheumatoid arthritis without rheumatoid factor, unspecified site Rheumatoid arthritis without rheumatoid factor, unspecified site [facility] 06/06/2024 Ambulatory Rheumatoid arthritis without rheumatoid factor, unspecified site Rheumatoid arthritis without rheumatoid factor, unspecified site [facility] 08/17/2023 Ambulatory Rheumatoid arthritis, unspecified Rheumatoid arthritis, unspecified [facility] 01/12/2023 [facility] 05/14/2022 [facility] 04[facility]26/2022 [facility] 12/16/2021 [facility] 11/11/2021 [facility] 11[facility]05/2021 [facility] 09/09/2021 [facility] 09/06/2021 [facility] 08/27/2021 [facility] 08/03/2021 [facility] 06/29/2021 [facility] 06/29/2021 [facility] 01/12/2021 [facility] 01/05/2021 [facility] 11/24/2020 Care Team Organization Name Specialty Phone Email Start Date End Da te [facility] ([facility] BRANDON TORRES Primary Care 01/12/2023 01/12/2023 [facility] BRANDON TORRES Primary Care 01/12/2023 [facility] BRANDON TORRES Primary Care 05/17/2022 [facility] BRANDON TORRES Primary Care 12/20/2021
[2024-06-07 13:45] LABS: Basophils Absolute Auto 0.1 X10*3/uL (0.0-0.2); Basophils Percent Auto 0.7 % (0-2); Eosinophils Absolute Auto 0.2 X10*3/uL (0.0-0.4); Eosinophils Percent Auto 2.2 % (0-4); Hematocrit 47.1 % (42.0-52.0); Hemoglobin 15.8 g/dl (14.0-18.0); Imm Gran Abs Auto 0.03 X10*3/uL (0.00-0.03); Imm Gran Pct Auto 0.3 % (0.0-0.4); Lymphocytes Absolute Auto 2.4 X10*3/uL (1.2-4.9); Lymphocytes Percent Auto 28.3 % (20-40); Mean Corpuscular HGB Conc 33.5 g/dl (31.0-36.0); Mean Corpuscular Hemoglobin 29.6 pg (27.0-33.0); Mean Corpuscular Volume 88.4 fL (80.0-98.0); Mean Platelet Volume 10.6 fL (9.4-12.4); Monocytes Absolute Auto 0.8 X10*3/uL (0.1-1.2); Monocytes Percent Auto 8.8 % (2-11); Neutrophils Absolute Auto 5.2 x10*3/uL (2.0-8.3); Neutrophils Percent Auto 59.7 % (45-73); Platelet Count 234 X10*3/uL (160-400); Red Blood Count 5.33 X10*6/uL (4.60-5.80); Red Cell Distribution Width 12.4 % (11.0-16.0); White Blood Count 8.6 X10*3/uL (4.8-10.8)
[2024-06-07 14:03] LABS: Rheumatoid Factor < 13.0 IU/mL (<15.0)
[2024-06-07 14:20] LABS: Alanine Aminotransferase 31 U/L (0-40); Albumin Level 4.6 g/dL (3.5-5.0); Alkaline Phosphatase 87 U/L (39-117); Anion Gap 13 (12-20); Aspartate Amino Transferase 26 U/L (5-37); Bilirubin Total 0.6 mg/dL (0.0-1.0); Blood Urea Nitrogen 14 mg/dL (9-16); Calcium 9.4 mg/dL (8.4-10.2); Carbon Dioxide 26 mmol/L (22-29); Chloride 107 mmol/L (96-108); Estimated Glomerular Filt Rate > 60; Glucose Random 100 mg/dL (60-115); Potassium 3.6 mmol/L (3.3-5.1); Sodium 142 mmol/L (135-145); Total Protein 7.3 g/dL (6.5-8.0)
[2024-06-07 14:22] LABS: Erythrocyte Sedimentation Rate 1 MM/HR (0-15)
[2024-06-10 22:07] LABS: Anti DNA DS Antibody 9 IU/mL
== END 2024-06-07 12:35 | disposition home or self-care (01) ==
LOC: HO.LAB 12:34
PROVIDERS: Visit Provider Pediatrics Pediatric Rheumatology
DX: M06.00 Rheumatoid arthritis without rheumatoid factor, unspecified site (principal)
CPT/HCPCS: 36415; 80053; 85025; 85652; 86225; 86431

== ENCOUNTER → 2025-01-16 14:44 | Outpatient (REF) | payer MEDICAID, SELFPAY ==
--- NOTE | 2025-01-16 14:47 | CA_ITS ---
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 Study Quality: Adequate ECG Rhythm: Sinus Conclusions: - Normal study Findings Left Ventricle Normal left ventricular size, thickness, and systolic function. The visually estimated ejection fraction is between 60-65%. Diastolic function is normal for age. Right Ventricle Normal right ventricular cavity size and systolic function. Atria Both atria are normal in size. There is no evidence of interatrial shunt. Aortic Valve Normal aortic valve structure and function. There is no aortic valve stenosis. There is no aortic valve regurgitation. Mitral Valve Normal mitral valve structure and function. There is trace mitral valve regurgitation. There is no mitral valve stenosis. Pulmonic Valve The pulmonic valve is likely normal. Tricuspid Valve Normal tricuspid valve structure. There is trace tricuspid valve regurgitation. The right ventricular systolic pressure is normal. The right ventricular systolic pressure is 20 mmHg. Normal right atrial pressure. There is no evidence of pulmonary hypertension. Great Vessels All visible segments of the aorta are normal in size. The pulmonary artery was not well visualized. There is no dilatation of the ascending aorta measuring 2.80 cm. Venous The inferior vena cava is normal in size and collapses greater than 50% with inspiration. Pericardium/Pleural There is no evidence of pericardial effusion. Prior Study Comparison No prior study available for comparison. Measurements 2D Linear Measurements IVSd: 0.68 0.6-0.9/0.6-1.0 cm LVIDd: 4.92 3.9-5.3/4.2-5.9 cm LVIDd Index: 3.06 2.4-3.2/2.2-3.1 cm/m2 LVIDs: 3.03 2.0-3.6 cm LVPWd: 0.58 0.7-1.1 cm LA Diam: 3.30 2.7-3.8/3.0-4.0 cm LAIDs Index: 2.05 1.5-2.3 cm/m2 LV Mass: 121.61 67-162/88-224 g LV Mass Index: 75.53 43-95/49-115 g/m2 LVOT Diam: 2.20 3.0+(-)1.3 cm 2D Systolic Function EF 4C: 62.80 >55% EF 2C: 66.30 >55% EF BiP: 63.60 >55% Mitral Valve MV Pk E: 0.86 MV PK A: 0.45 MV Decel Time: 212.00 E/A: 1.90 E'Lateral: 13.40 E'Medial: 10.30 E/E' Med: 8.30 E/E' Lat: 6.40 PHT: 62.00 MVA PHT: 3.55 Decel Lee: 4.04 Aortic Valve AoV Pk [place]: 1.05 AoV Pk Grad: 4.00 ZACH: 3.13 LVOT LVOT Pk [place]: 0.89 LVOT Mn [place]: 0.61 LVOT VTI: 0.19 LVOT Pk Grad: 3.00 LVOT Mn Grad: 2.00 LVOT Diam: 2.20 LVOT Area: 3.80 Diastolic Function MV Pk E: 0.86 MV Pk A: 0.45 E/A: 1.90 E'Medial: 10.30 E/E' Med: 8.30 E' Laterial: 13.40 E/E' Lat: 6.40 Right Ventricle TAPSE (mm): 24.70 TVS' [place]: 13.90 Tricuspid Valve TR Pk [place]: 2.08 TR Pk Grad: 17.00 RA Press: 3.00 RVSP: 20.00 Great Vessels Aorta Sinus of Valsalva: 2.60 2.0-3.5 cm Ao Asc: 2.80 2.1-3.4 cm Pulmonary Veins Pulm Vein S/D 0.70 Pulmonary Valve PV Pk [place]: 0.94 Peak PV Grad: 4.00 Updated in Other Vendor System with Status of Final Fei Omer MD electronically signed on 01/17/2025 4:47:56 PM with status of Final
--- OUTSIDE RECORDS SUMMARY | 2025-01-16 22:16 | XMS_ITS | Encounter Summary ---
Author Organization [facility] Address [address] [place] [address] Care Team Providers Care Patient Financial Rep Name Role Phone Bang Diaz MD Primary Care Provider [phone] Reason for Visit * Reason Comments Medication Refill Encounter Details Date Type Department Care Team ([facility] st Contact Info) Description 01/12/2025 Refill [facility], Department of Rheumatology, [place] [phone] Romana Domingo MD [address] [place] [address] Systemic lupus erythematosus with other organ involvement, unspecified SLE type (Primary Dx); 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 factor, involving unspecified site Social History Tobacco Use Types Packs/Day Years [...] on file documented as of this encounter Miscellaneous Notes * Telephone Encounter - Fawn Coyne RN - 01/13/2025 3:04 PM EST Last seen 06/2024, continued on XELJANZ XR 11 mg Tablet Extended Release 24 hr, TAKE 1 TABLET BY MOUTH EVERY DAY, meloxicam (MOBIC) 7.5 MG tablet, TAKE 1 TABLET BY MOUTH EVERY DAY Referral sent to adult rheum. Pt has not yet established care. documented in this encounter Plan of Treatment Not on file documented as of this encounter Visit Diagnoses Diagnosis Systemic lupus erythematosus with other organ involvement, unspecified SLE type- Primary 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 factor, involving unspecified site documented in this encounter Care Teams Patient Financial Rep Relationship Specialty Start Date End Date Bang Diaz MD [address] [place] [phone] PCP - General General Pediatrics 08/19/19 documented as of this encounter
--- OUTSIDE RECORDS SUMMARY | 2025-01-16 22:16 | XMS_ITS | Clinical Summary ---
Author Organization [facility] Address [address] [place] [address] Care Team Providers Care Grant Administrator Name Role Phone Bang Diaz MD Primary Care Provider [phone] Source Comments Please note that some or [...] so, obtain the minor's consent prior to disclosure.[facility] Allergies No known active allergies Medications sodium fluoride-pot nitrate 1.1-5 % Paste BRUSH TEETH POR 2 MINUTES TWICE DAILY IN THE MORNING AND IN THE EVENING. SPIT OUT, NO RINSE. NO EAT OR DRINK NADA POR 30 MINUTES AFTER 04/13/19 23 Active hydroxychloroquin e sulfate (PLAQUENIL) 200 mg tabletIndications :Systemic lupus erythematosus with other organ involvement, unspecified SLE type,Rheumatoid arthritis, unspecified,Other organ or system involvement in systemic lupus erythematosus TAKE 1 TABLET BY MOUTH EVERY DAY MONDAY THROUGH MONDAY AND TAKE 2 TABLETS BY MOUTH ON MONDAY AND MONDAY 45 tablet 4 09/14/19 25 Active XELJANZ XR 11 mg Tablet Extended Release 24 hrIndications:Rhe umatoid arthritis with negative rheumatoid factor, involving unspecified site TAKE 1 TABLET BY MOUTH ONCE DAILY 30 tablet 1 01/14/20 25 Active meloxicam (MOBIC) 7.5 MG tabletIndications :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 factor, involving unspecified site,Systemic lupus erythematosus with other organ involvement, unspecified SLE type TAKE 1 TABLET BY MOUTH EVERY DAY 30 tablet 1 01/14/20 25 Active meloxicam (MOBIC) 7.5 MG tabletIndications :Systemic lupus erythematosus with other organ involvement, unspecified SLE type TAKE 1 TABLET BY MOUTH EVERY DAY 30 tablet 5 07/11/19 25 025 Discontinued XELJANZ XR 11 mg Tablet Extended Release 24 hrIndications:Rhe umatoid arthritis with negative rheumatoid factor, involving unspecified site TAKE 1 TABLET BY MOUTH EVERY DAY 30 tablet 3 09/19/19 25 025 Discontinued Active Problems No known active problems Encounters Date Type Department Care Team Description 01/12/2025 Refill [facility], Department of Rheumatology, [address] [phone] Romana Domingo MD Systemic lupus erythematosus with other organ involvement, unspecified SLE type (Primary Dx); 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 factor, involving unspecified site 10/18/2024 Telephone [facility], Department of Rheumatology, [address] [phone] Ester Patterson MA from Last 3 Months Family History Medical [...] 79 06/06/2024 2:05 PM EDT Temperature 36 C (96.8 F) 11/19/2019 8:47 AM EDT Respiratory Rate - - Oxygen Saturation 98% 11/19/2019 8:47 AM EDT Inhaled Oxygen Concentration - - Weight 63.2 kg (139 lb 5.3 oz) 09/18/2024 8:32 A M EDT Height 162 cm (5' 3.78 ) 06/06/2024 2:05 PM EDT Body Mass Index 24.08 06/06/2024 2:05 PM EDT Plan of Treatment Health Maintenance Due Date Last Done Comments DTaP/TDAP/TD VACCINES (1 - Tdap) 12/14/2006 ADOLESCENT HIV SCREENING 12/14/2012 COVID-19 Vaccine (1 - 2023-2 5 season) 2024 INFLUENZA (#1) 2024 NIRSEVIMAB VACCINES UNDER 8 MONTHS Aged Out No longer eligible based on patient's age to complete this topic [place] [id number] Care Teams Grant Administrator Relationship Specialty Start Date End Date Bang Diaz MD [address] [place] [address] [place] [phone] PCP - General General Pediatrics 08/19/19
--- OUTSIDE RECORDS SUMMARY | 2025-01-16 22:16 | XMS_ITS ---
Author Name [facility] Organization Unknown History of Medication Use Medication Directions Dispensed Refills Start Date End Date Stat XELJANZ XR 11 mg Tablet Extended Release 24 hr TAKE 1 TABLET BY MOUTH EVERY DAY 05/13/2024 active tofacitinib (XELJANZ XR) 11 mg Tablet Extended Release 24 hr Take 11 mg by mouth daily 01/02/2024 5 active meloxicam (MOBIC) 7.5 MG tablet TAKE 1 TABLET BY MOUTH EVERY DAY 01/12/2023 4 active XELJANZ 5 mg Tablet tablet TAKE 1 TABLET BY MOUTH TWICE DAILY 10/03/2022 4 active meloxicam (MOBIC) 7.5 MG tablet TAKE 1 TABLET BY MOUTH EVERY DAY 04/25/2022 3 active meloxicam (MOBIC) 7.5 MG tablet TAKE 1 TABLET BY MOUTH EVERY DAY 04/25/2022 active sodium fluoride-pot nitrate 1.1-5 % Paste BRUSH TEETH POR 2 MINUTES TWICE DAILY IN THE MORNING AND IN THE EVENING. SPIT OUT, NO RINSE. NO EAT OR DRINK NADA POR 30 MINUTES AFTER 04/12/2022 3 active sodium fluoride-pot nitrate 1.1-5 % Paste BRUSH TEETH POR 2 MINUTES TWICE DAILY IN THE MORNING AND IN THE EVENING. SPIT OUT, NO RINSE. NO EAT OR DRINK NADA POR 30 MINUTES AFTER 04/12/2022 active meloxicam (MOBIC) 7.5 MG tablet Take 7.5 mg by mouth 04/04/2022 3 aborted tofacitinib (XELJANZ) 5 mg Tablet tablet Take 1 tablet (5 mg) by mouth 2 (two) times daily 03/25/2022 3 active tofacitinib (XELJANZ) 5 mg Tablet tablet Take 5 mg by mouth 03/25/2022 active hydroxychloroquine sulfate (PLAQUENIL) 200 mg tablet TAKE 1 TABLET BY MOUTH EVERY DAY MONDAY THROUGH MONDAY, AND TAKE 2 TABLETS EVERY DAY ON MONDAY AND Monday03/21/2022 5 active XELJANZ 5 mg Tablet tablet TAKE 1 TABLET BY MOUTH TWICE DAILY 03/21/2022 3 aborted hydroxychloroquine sulfate (PLAQUENIL) 200 mg tablet TAKE 1 TABLET BY MOUTH ONCE DAILY MONDAY THROUGH MONDAY AND TAKE 2 TABLETS ON MONDAY AND Monday03/21/2022 active predniSONE (DELTASONE) 2.5 MG tablet TAKE 2 TABLETS BY MOUTH DAILY 11/11/2021 3 aborted predniSONE (DELTASONE) 2.5 MG tablet Take 2 tablets (5 mg) by mouth daily 09/02/2021 2 active predniSONE (DELTASONE) 2.5 MG tablet TAKE 2 TABLETS BY MOUTH DAILY 05/11/2021 2 active hydroxychloroquine sulfate (PLAQUENIL) 200 mg tablet TAKE 1 TABLET BY MOUTH ONCE DAILY MONDAY THROUGH MONDAY AND TAKE 2 TABLETS ON MONDAY AND Monday01/13/2021 2 active XELJANZ 5 mg Tablet tablet TAKE 1 [...] mouth daily 200 mg PO every day -, 400 mg PO Sat/Sun active Problems Problem Status Onset Date Problem Type Date of Resolution Source Rheumatoid arthritis involving both hands, unspecified whether rheumatoid factor present active EncounterDiagnosisAct [facility] Systemic lupus erythematosus with other organ involvement, unspecified SLE type active EncounterDiagnosisAct [facility] 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 factor, involving unspecified site active EncounterDiagnosisAct [facility] Encounters Encounter Type Encounter Reason Primary Diagnosis Location Date Ambulatory Rheumatoid arthritis without rheumatoid factor, unspecified site Rheumatoid arthritis without rheumatoid factor, unspecified site [facility] [place] [place]06/2024 Ambulatory Rheumatoid arthritis without rheumatoid factor, unspecified site Rheumatoid arthritis without rheumatoid factor, unspecified site [facility] 08/17/2023 Ambulatory Rheumatoid arthritis, unspecified Rheumatoid arthritis, unspecified [facility] 01/12/2023 Ambulatory [facility] 05/14/2022 Ambulatory [facility] 04/26/2022 Ambulatory [facility] 12/16/2021 Ambulatory [facility] 11/11/2021 Ambulatory [facility] 11/05/2021 Ambulatory [facility] 09/09/2021 Ambulatory [facility] 09/06/2021 Ambulatory [facility] 08/27/2021 Ambulatory [facility] 08/03/2021 Ambulatory [facility] 06/29/2021 Amb[facility] 06/29/2021 Ambulatory [facility] 01/12/2021 Ambulatory [facility] 01/05/2021 Ambulatory [facility] 11/24/2020 Care Team Organization Name Specialty Phone Email Start Date End Da te [facility] BRANDON TORRES Primary Care 01/12/2023 025 [facility] BRANDON TORRES Primary Care 01/12/2023 01/12/2023 [facility] BRANDON TORRES Primary Care 05/17/2022 025 [facility] BRANDON TORRES Primary Care 12/20/2021
--- OUTSIDE RECORDS SUMMARY | 2025-01-16 22:16 | XMS_ITS | Clinical Summary ---
Author Organization [employer] Address [address] [facility] [address] [place] [address] Care Team Providers Care Physician Liaison Name Role Phone Crystal Paz Primary Care Provider [phone] Allergies No known active allergies Medications Sod Fluoride-Potass ium Nitrate 1.1-5 % pasteIndication s:Dental caries [place] teeth for 2 minutes, morning and night. [...] 3 Active Xeljanz 5 MG tablet Take 11 mg by mouth in the morning. 3 Active ketoconazole (NIZOral) 2 % shampooIndicati ons:Seborrheic dermatitis Apply topically 3 (three) times a week. 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 Encounters Date Type Department Care Team Description 01/07/2025 Telephone [facility] [address] [place] [phone] Crystal Paz ANP march recall 12/02/2024 2:30 PM EDT Office Visit [facility] [address] [place] [phone] Crystal Paz ANP Seronegative rheumatoid arthritis (CMS/HCC) ([facility]) (Primary Dx); Systemic lupus erythematosus with other organ involvement, unspecified SLE type (CMS/HCC) (HCC); Pleuritic pain; Seborrheic dermatitis; Healthcare maintenance 12/02/2024 Travel 11/29/2024 Telephone [facility] [address] [place] [phone] Crystal Paz ANP chart prep 11/25/2024 Patient Outreach [facility] [address] [place] [phone] Crystal Paz ANP Pre-visit Planning (Pre visit planning LVM ) from Last 3 Months Immunizations Immunization Administration Dates Next Due DTaP 09/21/2005, 2,09/06/2000,04/12/2000,0 02/14/2000 HPV 9-Valent 09/22/2016,12/17/2015,10/07/2015 Hep A, ped/adol, 2 dose 09/22/2016,10/07/2015 Hep B, Adolescent or Pediatric 01/27/2010,2000,1999 Hib (HbOC) 09/06/2001,05/16/2001,04/12/2000 ,02/14/2000 IPV 09/21/2005,01/26/2001,04/12/2000 ,02/14/2000 Influenza, Unspecified 01/11/2013 Influenza, live, intranasal 01/11/2013 MMR 09/21/2005,01/26/2001 Meningococcal MCV4P [id number]-135 09/22/2016,10/17/19 12 Pneumococcal Conjugate PCV 7 05/16/2001,09/07/19,04/12/2000,02/14/2000 Rabies, intramuscular 01/22/2017,01/07/2017 Tdap 10/17/2011 Varicella 08/15/2007,01/26/2001 [...] Answer Date Recorded Patient Health Questionnaire-9 Score 6 12/02/2024 Patient Health Questionnaire-9 Score 6 12/02/2024 Last PHQ-9: Questionnaire Data Not on file 1 Housing Stability Answer Date Recorded What is [...] Answer Date Recorded Patient Health Questionnaire-2 Score 2 12/02/2024 Sex and Gender Information Value Date Recorded Sex Assigned at Male 12/06/2021 10:16 AM EDT Legal Sex Male 10:16 AM EDT Gender Identity Male 12/06/2021 10:16 AM EDT Sexual Orientation Straight 12/06/2021 10 :16 AM EDT Last Filed Vital Signs Vital Sign Reading Time Taken Comments Blood Pressure 120/80 12/02/2024 2:38 PM EDT Pulse 75 12/02/2024 2:38 PM EDT Temperature 36.5 C (97.7 F) 12/02/2024 2:38 PM EDT Respiratory Rate 15 12/02/2024 2:38 PM EDT Oxygen Saturation 95% 12/02/2024 2:38 PM EDT Inhaled Oxygen Concentration - - Weight 56.4 kg (124 lb 6 oz) 12/02/2024 2:38 PM EDT Height 161.3 cm (5' 3.5 ) 12/02/2024 2:38 PM EDT Body Mass Index 21.69 12/02/2024 2:38 PM EDT Plan of Treatment Health Maintenance Due Date Last Done Comments HIV Screening 1999 Disability Screening 1999 Alcohol/Substance Use Screening 2011 Family Planning (PISQ) 12/14/2014 Hepatitis C Screening 12/14/2017 DTaP/Tdap/Td Vaccines (7 - Td or Tdap) 10/16/2021 10/17/2011, 09/21/2005, 05/16/2001, Additional history exists Dental Oral Exam 10/14/2022 04/12/2022 Dental Prophylaxis 2022 06/13/2022 Dental X-Ray: Bitewings 04/14/2023 04/12/2022 SDOH Screening 05/23/2024 05/24/2023 COVID-19 Vaccine ( season) 2024 Influenza Vaccine (#1) 2024 01/11/2013, 2012 Dental X-Ray: Full Mouth 04/13/2025 04/12/2022 Depression Screening 12/02/2025 12/02/2024, 12/03/19 25 Tobacco Screening 12/02/2025 12/02/2024 Zoster Vaccines (1 of 2) 12/14/2049 RSV Patients and Patients Aged 60 years or older (1 - 1-dose 75+ series) 12/14/2074 Pneumococcal Vaccine: Pediatrics (0 to 5 Years) and At-Risk Patients (6 to 49) Years Aged Out 05/16/2001, 09/06/2000, 04/12/2000, Additional history exists No longer eligible based on patient's age to complete this topic HIB Vaccines Completed 09/06/2001, 05/07, 04/12/2000, Additional history exists IPV Vaccines Completed 09/21/2005, 01/07, 04/12/2000, Additional history exists Hepatitis B Vaccines Completed 01/27/2010, 09/06/2000, 1999 HPV Vaccines Completed 09/22/2016, 12/07, 10/07/2015 Hepatitis A Vaccines Completed 09/22/2016, 10/07/19 16 Meningococcal Vaccine Completed 09/22/2016, 012 Meningococcal B Vaccine Aged Out No l onger eligible based on patient's age to complete this topic RSV under 20 months Aged Out No [...] Most Recently Relevant to Health Maintenance Insurance [facility] C3 Care Teams Physician Liaison Relationship Specialty Start Date End Date Crystal Paz ANP [address] [place] [address] PCP - General Family Medicine 12/12/19
== END ==
LOC: HO.CARD 14:44
PROVIDERS: PCP Nurse Practitioner Primary Care; Visit Provider Nurse Practitioner Primary Care
DX: M32.19 Other organ or system involvement in systemic lupus erythematosus (principal); M06.00 Rheumatoid arthritis without rheumatoid factor, unspecified site
CPT/HCPCS: 93306

== ENCOUNTER → 2025-01-16 14:47 | Outpatient (BNV) | payer MEDICAID, SELFPAY | PROVIDERS: PCP Nurse Practitioner Primary Care; Visit Provider Internal Medicine Cardiovascular Disease | DX: R07.89 Other chest pain (principal); M32.9 Systemic lupus erythematosus, unspecified | CPT/HCPCS: 93306 ==